=== PATIENT | female | born 1980 | race African-American/Black ===

== ENCOUNTER 2017-09-29 16:35 | Emergency (ER) | payer OTHER ==
[~2017-09-29] VITALS: Ht 160 cm; Wt 89.4 kg
[~2017-09-29 16:35] MED LIST: CLEOCIN300 MG PO; DAILY VITAMIN1 EAC8 PO; FOLIC ACID1 MG PO; MERIBIN5 MG PO; MOTRIN800 MG PO; NORCO 5/3251 TABLET PO; PERCOCET 5/31 TABLET PO; TENORMIN25 MG PO; ZOFRAN4 MG PO
[2017-09-29 17:15] LABS: APPEARANCE CLEAR ((CLEAR)); BILIRUBIN NEGATIVE; BLOOD NEGATIVE; COLOR YELLOW ((YELLOW)); GLUCOSE (STRIP) NEGATIVE; KETONES NEGATIVE; LEUKOCYTES TRACE; NITRITE NEGATIVE; PROTEIN (STRIP) NEGATIVE; SPECIFIC GRAVITY 1.026 (1.000-1.030)
[2017-09-29 17:25] LABS: BACTERIA NONE SEEN /HPF; EPITHELIAL CELLS RARE /HPF; MUCUS TRACE /LPF; RED BLOOD CELLS 0-5 /HPF (0-5); UCUL ADDED? NO; WHITE BLOOD CELLS 0-5 /HPF (0-5)
[2017-09-29 18:14] LABS: HEMATOCRIT 39.8 % (36.0-46.0); HEMOGLOBIN 13.6 G/DL (11.9-15.5); MCH 30.8 PG (29.0-34.0); MCHC 34.2 G/DL (30.0-36.0); RBC DIS.WIDTH-CV 12.6 % (11.8-14.6); RBC DIS.WIDTH-SD 41.2 % (39-53); RED BLOOD COUNT 4.42 M/uL (3.80-5.20); WHITE BLOOD COUNT 8.1 K/uL (4.1-10.2)
[2017-09-29 18:16] LABS: ALBUMIN 4.1 g/dL (3.2-4.8); CHLORIDE 106 mEq/L (99-109); POTASSIUM 4.3 mEq/L (3.7-5.4); SODIUM 136 mEq/L (136-147)
[2017-09-29 18:18] LABS: GLUCOSE 90 mg/dL (70-99)
[2017-09-29 18:22] LABS: ALKALINE PHOSPHATASE 43 IU/L (3-129); CREATININE 0.8 mg/dL (0.6-1.3); GFR ESTIMATE (CALCULATED) > 59 mL/min/
[2017-09-29 18:23] LABS: UREA NITROGEN (BUN) 14 mg/dL (9-23)
[2017-09-29 18:24] LABS: AST (GOT) 24 IU/L (2-34)
[2017-09-29 18:25] LABS: ALT (GPT) 28 IU/L (3-49)
[2017-09-29 18:35] LABS: QUANTITATIVE HCG < 4.0 MIU/ML
[2017-09-29] MEDS ORDERED: DIFLUCAN150 MG PO (18:51)
[2017-09-29 19:03] LABS: SOURCE SWAB
[2017-09-29 19:03] LABS: PLAT.SUFFICIENCY ADEQUATE; PLATELET COUNT 221 K/uL (156-360)
[2017-09-29] MEDS ORDERED: MOTRIN600 MG PO (20:51)
[2017-09-29] MEDS ORDERED: SKELAXIN800 MG PO (20:51)
[2017-09-29 21:43] VITALS: BP 128/78
== END 2017-09-29 21:30 | disposition home or self-care (01) ==
LOC: EME 16:35
PROVIDERS: Physician Assistant
DX: S39.012A Strain of muscle, fascia and tendon of lower back, initial encounter (principal); B37.3 Candidiasis of vulva and vagina; M32.9 Systemic lupus erythematosus, unspecified; G89.29 Other chronic pain; Z98.51 Tubal ligation status; Z87.440 Personal history of urinary (tract) infections
CPT/HCPCS: 74176; 80053; 81003; 84702; 85027; 87210; 87491; 87591; 99281; 99284; J1885